=== PATIENT | female | born 1960 | race Caucasian/White ===

== ENCOUNTER 2018-10-01 06:00 | Day surgery (SDC) | payer OTHER ==
[~2018-10-01 06:00] MED LIST: CLONAZEPAM0.5 M1 PO; CYMBALTA60 MG PO; DULOXETINE PO; ENALAPRIL MALEA20 MG PO; GABAPENTIN400 MG PO; GABAPENTIN800 MG PO; HYDROCHLOROTHIA25 MG PO; IMIPRAMINE HCL25 MG PO; NABUMETONE500 MG PO; PROTONIX20 MG PO
== END 2018-10-01 17:47 | disposition home or self-care (01) ==
LOC: CIR.AMB 06:00
DX: H71.01 Cholesteatoma of attic, right ear (principal); H74.11 Adhesive right middle ear disease